=== PATIENT | female | born 1955 | race Caucasian/White ===

== ENCOUNTER → 2016-07-05 | Outpatient (CLI) | payer BC ==
[~2016-07-05] MED LIST: IBUP-103 PO; MULTTAB58 PO
== END | disposition home or self-care (01) ==
LOC: C.PAPS 11:25
PROVIDERS: ATTEND Obstetrics & Gynecology
DX: Z01.419 Encounter for gynecological examination (general) (routine) without abnormal findings (principal)

== ENCOUNTER → 2016-10-25 | Outpatient (CLI) | payer BC ==
--- NOTE | 2016-10-25 15:41 | MAMMOGRAPHY REPORT ---
BILATERAL DIGITAL SCREENING MAMMOGRAM TOMOSYNTHESIS WITH CAD: 10/25/2016 CLINICAL HISTORY: Routine screening. Patient has no complaints. TECHNIQUE: Breast tomosynthesis in addition to standard 2D mammography was performed. Current study was also evaluated with a Computer Aided Detection (CAD) system. COMPARISON: Comparison is made to exams dated: 10/09/2015 mammogram, 10/04/2014 mammogram, 03/30/2014 mammogram, 03/15/2014 mammogram, 03/04/2014 mammogram, and 03/01/2013 mammogram - [facility]. BREAST COMPOSITION: There are scattered areas of fibroglandular density in both breasts. FINDINGS: No suspicious masses, calcifications, or areas of architectural distortion are noted in e ither breast. There has been no significant interval change compared to prior exams. A biopsy marke r clip is again noted in the left 12:00 breast. IMPRESSION: ACR BI-RADS CATEGORY 2: BENIGN There is no mammographic evidence of malignancy. A 1 year screening mammogram is recommended. The p atient will receive written notification of the results. Approximately 10% of breast cancers are not detected with mammography. A negative mammographic repor t should not delay biopsy if a clinically suggestive mass is present. Nivia Hines M.D. ah/:10/25/2016 08:55:17 Well Driller: Janice ALMAGUER)(Tuyet)(BD), [facility] letter sent: Normal 1/2 BI-RADS Code: ACR BI-RADS Category 2: Benign
== END | disposition home or self-care (01) ==
LOC: C.MAMM 08:04
PROVIDERS: ATTEND Obstetrics & Gynecology
DX: Z12.31 Encounter for screening mammogram for malignant neoplasm of breast (principal)

== ENCOUNTER → 2017-02-05 | Outpatient (CLI) | payer BC ==
[2017-02-05 12:11] LABS: URINE APPEARANCE CLEAR (CLEAR); URINE BILIRUBIN NEG (NEG); URINE COLOR YELLOW; URINE NITRITE NEG (NEG); UROBILINOGEN NEG (NEG)
[2017-02-05 12:14] LABS: MANUAL MICROSCOPIC REQUIRED? NO; REVIEW REQ? NO
== END | disposition home or self-care (01) ==
LOC: C.LABSPEC 11:16
PROVIDERS: ATTEND Nurse Practitioner Family
DX: R10.9 Unspecified abdominal pain (principal)

== ENCOUNTER → 2017-02-07 | Outpatient (CLI) | payer BC ==
--- NOTE | 2017-02-07 07:26 | DIAGNOSTIC IMAGING REPORT ---
KUB HISTORY: R10.9 Acute left flank [id number] COMPARISON: KUB 09/12/2015. FINDINGS: The bowel gas pattern is unremarkable. There are no dilated loops of small bowel to suggest an obstruction. No renal calculi. No ureteral calculi. Calcifications in the deep pelvis likely represent phleboliths. These remain unchanged. No pneumoperitoneum or pneumatosis. IMPRESSION: No renal or ureteral stones. Electronically signed by: Manish Tinoco M.D. 02/07/2017 7:25 AM Dictated Date/Time: 02/07/2017 7:22 AM
== END | disposition home or self-care (01) ==
LOC: C.RAD 06:54
PROVIDERS: ATTEND Nurse Practitioner Family
DX: R10.9 Unspecified abdominal pain (principal)

== ENCOUNTER → 2017-02-28 | Outpatient (CLI) | payer BC ==
--- NOTE | 2017-02-28 17:16 | DIAGNOSTIC IMAGING REPORT ---
RIGHT FINGER(S) MIN 2 VIEWS ROUTINE CLINICAL HISTORY: M79.644 Thumb pain, right right thumb Right COMPARISON: None. DISCUSSION: The bones and joint spaces appear intact. There is no evidence of fracture, dislocation or bony disease. There is no evidence for soft tissue swelling. IMPRESSION: Negative study. The above report was generated using voice recognition software. It may contain grammatical, syntax or spelling errors. Electronically signed by: Andrea Pérez M.D. 02/28/2017 5:14 PM Dictated Date/Time: 02/28/2017 5:14 PM
== END | disposition home or self-care (01) ==
LOC: C.RAD 16:55
PROVIDERS: ATTEND Nurse Practitioner Family
DX: M79.644 Pain in right finger(s) (principal)

== ENCOUNTER → 2017-03-24 | Outpatient (CLI) | payer BC | END | disposition home or self-care (01) | LOC: C.LAB 10:25 | PROVIDERS: ATTEND Nurse Practitioner Family | DX: Z00.00 Encounter for general adult medical examination without abnormal findings (principal); Z87.898 Personal history of other specified conditions ==

== ENCOUNTER → 2017-10-29 | Outpatient (CLI) | payer OTHER ==
--- NOTE | 2017-10-29 15:07 | MAMMOGRAPHY REPORT ---
BILATERAL DIGITAL SCREENING MAMMOGRAM TOMOSYNTHESIS WITH CAD: 10/29/2017 CLINICAL HISTORY: Routine screening. Patient has no complaints. TECHNIQUE: Breast tomosynthesis in addition to standard 2D mammography was performed. Current study was also evaluated with a Computer Aided Detection (CAD) system. COMPARISON: Comparison is made to exams dated: 10/25/2016 mammogram, 10/09/2015 mammogram, 10/04/2014 ma mmogram, 03/30/2014 mammogram, and 03/30/2014 aspiration - [facility]. BREAST COMPOSITION: There are scattered areas of fibroglandular density in both breasts. FINDINGS: No suspicious masses, calcifications, or areas of architectural distortion are noted in ei ther breast. There has been no significant interval change compared to prior exams. A biopsy clip is again noted within the left 12:00 breast. IMPRESSION: ACR BI-RADS CATEGORY 2: BENIGN There is no mammographic evidence of malignancy. A 1 year screening mammogram is recommended. The pa tient will receive written notification of the results. Approximately 10% of breast cancers are not detected with mammography. A negative mammographic report should not delay biopsy if a clinically suggestive mass is present. Nivia Hines M.D. ah/:10/29/2017 07:47:24 Statistics Manager: Kelly LARES(R)(M), [facility] letter sent: Normal 1/2 BI-RADS Code: ACR BI-RADS Category 2: Benign
== END | disposition home or self-care (01) ==
LOC: C.MAMM 07:24
PROVIDERS: ATTEND Obstetrics & Gynecology
DX: Z12.31 Encounter for screening mammogram for malignant neoplasm of breast (principal)

== ENCOUNTER → 2017-11-03 | Outpatient (CLI) | payer OTHER ==
--- NOTE | 2017-11-03 09:07 | DIAGNOSTIC IMAGING REPORT ---
R ANKLE MIN 3 VIEWS CLINICAL HISTORY: RIGHT ANKLE PAIN COMPARISON: None. DISCUSSION: No acute fractures or dislocations are visualized. There is a corticated ossicle at the level of the lateral malleolus. This is felt to be old. There is a small medial malleolar spur. There are no erosive changes. IMPRESSION: Old post traumatic and degenerative changes. No acute fractures. Electronically signed by: Daniel Muñiz M.D. 11/03/2017 9:05 AM Dictated Date/Time: 11/03/2017 9:05 AM
== END | disposition home or self-care (01) ==
LOC: C.RDSM 08:36
PROVIDERS: ATTEND Internal Medicine
DX: M25.579 Pain in unspecified ankle and joints of unspecified foot (principal)

== ENCOUNTER → 2018-01-06 | Outpatient (CLI) | payer OTHER ==
[2018-01-06 09:44] LABS: BASO % 0.2 %; BASO ABS # 0.01 K/uL (0-0.2); EOS % 1.7 %; EOS ABS # 0.08 K/uL (0-0.5); HEMATOCRIT 37.8 % (37-47); HEMOGLOBIN 12.6 g/dL (12.0-16.0); IG# 0.01 K/uL (0.00-0.02); LYMPH % 33.8 %; LYMPH ABS # 1.61 K/uL (1.2-3.4); MEAN CELL VOLUME 92.4 fL (80-100); MEAN CORPUSCULAR HEMOGLOBIN 30.8 pg (25-34); MEAN CORPUSCULAR HGB CONC 33.3 g/dl (32-36); MONO % 7.1 %; MONO ABS # 0.34 K/uL (0.11-0.59); NEUT ABS # 2.71 K/uL (1.4-6.5); PLATELET COUNT 214 K/uL (130-400); RED CELL DISTRIBUTION WIDTH CV 13.3 % (11.5-14.5); WHITE BLOOD COUNT 4.76 K/uL (4.8-10.8)
[2018-01-06 10:07] LABS: ALBUMIN 3.4 gm/dl (3.4-5.0); ALKALINE PHOSPHATASE 50 U/L (45-117); ALT/SGPT 17 U/L (12-78); AST/SGOT 15 U/L (15-37); BLOOD UREA NITROGEN 21 mg/dl (7-18); CALCIUM 7.8 mg/dl (8.5-10.1); CARBON DIOXIDE 27 mmol/L (21-32); CHOLESTEROL 149 mg/dl (0-200); CREATININE 0.67 mg/dl (0.60-1.20); GLUCOSE 96 mg/dl (70-99); LDL CHOLESTEROL CALCULATED 80 mg/dl; POTASSIUM 3.8 mmol/L (3.5-5.1); SODIUM 141 mmol/L (136-145); TOTAL PROTEIN 6.4 gm/dl (6.4-8.2)
== END | disposition home or self-care (01) ==
LOC: C.LAB 07:29
PROVIDERS: ATTEND Nurse Practitioner Family
DX: E55.9 Vitamin D deficiency, unspecified (principal); Z86.39 Personal history of other endocrine, nutritional and metabolic disease; Z13.220 Encounter for screening for lipoid disorders; Z13.1 Encounter for screening for diabetes mellitus